=== PATIENT | female | born 1990 | race Two or more races ===

== ENCOUNTER 2020-04-06 13:31 | Emergency (ER) | payer OTHER ==
[~2020-04-06] VITALS: Ht 172.7 cm; Wt 62.1 kg
[2020-04-06] MEDS ORDERED: ZOFRAN8 MG (13:42)
[2020-04-06] MEDS ORDERED: PRENATAL FORMU1 EAC1 (13:43)
== END 2020-04-06 21:08 | disposition home or self-care (01) ==
LOC: ER 13:31
DX: O26.891 Other specified pregnancy related conditions, first trimester (principal); R55 Syncope and collapse; Z20.828 Contact with and (suspected) exposure to other viral communicable diseases